=== PATIENT | female | born 2005 | race African-American/Black ===

== ENCOUNTER 2025-10-02 13:48 | Emergency (ER) | payer OTHER, SELFPAY ==
--- NOTE | ~2025-10-02 | XR_ITS ---
EXAMINATION: XR ankle RT min 3V, 10/02/2025 14:00 CDT HISTORY: injury for 1 week COMPARISON: No comparisons available. Findings: No acute fracture or malalignment. No significant degenerative changes. Soft tissues unremarkable. Impression: No acute fracture or malalignment. Reviewed, dictated and finalized at location P. Impression: No acute fracture or malalignment.
[2025-10-02 14:01] VITALS: BP 131/73; PULSE 70; RESP 18; TEMP 36.8; O2SAT 100
--- NOTE | 2025-10-02 14:24 | ED.LOWEXIN ---
HPI - Extremity Injury (Lower) General Chief Complaint: Extremity Injury, Lower Stated Complaint: right ankle injury Time Seen by Provider: 10/02/25 14:15 Source: patient and RN notes reviewed Mode of arrival: ambulatory Limitations: no limitations History of Present Illness HPI Narrative: 20-year-old female Presents Express Care complaining of injury to right ankle 1 week ago. Patient reports 1 week ago she was playing many calls when she stepped down on an uneven surface and rolled her right ankle falling to the ground. Patient denies any other injuries, she denies hitting her head no loss of consciousness, neck pain, back pain. Patient's have been doing ice and took 1 dose of ibuprofen without relief. Patient denies any numbness, tingling.. Patient denies any significant past medical history. Related Data Home Medications ?Medication ?Instructions ?Recorded ?Confirmed ?Last Taken ?Type No Home Medications 10/02/25 10/02/25 Unknown History Allergies Allergy/AdvReac Type Severity Reaction Status Date / Time No Known Allergies Allergy Verified 10/02/25 14:03 Review of Systems Review of Systems: CONSTITUTIONAL: Denies fever, chills, or sweats. EYES: Denies visual changes, redness, or discharge. ENT: Denies rhinorrhea, congestion, sore throat, or otalgia. CARDIOVASCULAR: Denies chest pain, palpitations, or edema. RESPIRATORY: Denies cough or dyspnea. GASTROINTESTINAL: Denies abdominal pain, nausea, vomiting, or diarrhea. GENITOURINARY: Denies dysuria or hematuria. SKIN: Denies rash, wound, or itching. MUSCULOSKELETAL: Denies back pain, joint pain, or myalgia. Positive for right ankle pain NEUROLOGIC: Denies headache, numbness, or weakness. PSYCHIATRIC: Denies anxiety or depression. All other systems reviewed are negative, except as documented in HPI. PMFSH Comments At the time of my signature, I reviewed and agree with the nursing past medical, surgical, social, and family history. There is no relevant family history pertinent to the patient complaint. Exam Narrative: GENERAL: This is a well-nourished, well-developed adult, in no apparent distress. They are non ill-appearing, nontoxic appearing. HEAD: normocephalic, atraumatic. EYES: Sclera clear/white. Vision is grossly intact. Conjunctiva normal. Extraocular movement intact. EARS: External ears normal Hearing grossly intact. NOSE: External nose normal THROAT: Mucous membranes moist NECK: Neck supple CARDIOVASCULAR: Regular rate and rhythm RESPIRATORY: Respiratory rate normal, respiratory effort nonlabored, no respiratory distress NEURO: awake, alert, and oriented to person, place and time. There were no obvious focal neurologic abnormalities. EXTREMITIES: Right ankle: No obvious deformity, injury, swelling, bruising, redness. There is pain through full range of motion. Lateral tenderness to palpation. Capillary refill less than 3 seconds. Right pedal Pulse 2 +palpable. Normal sensation. Neurovascular status intact distal injury. Patient able to wiggle her toes. Negative Lozoya's test. BACK: Nontender without deformity. Course Course Emergency Course: Portions of this record may have been created with voice recognition software Level of Care: Express Care Visit Vital Signs Vital signs: Vital Signs Temperature 98.3 F 10/02/25 14:01 Pulse Rate 70 10/02/25 14:01 Respiratory Rate 18 10/02/25 14:01 Blood Pressure 131/73 10/02/25 14:01 Pulse Oximetry 100 10/02/25 14:01 Oxygen Delivery Room Air 10/02/25 14:01 Temperature 98.3 F 10/02/25 14:01 Pulse Rate 70 10/02/25 14:01 Respiratory Rate 18 10/02/25 14:01 Blood Pressure 131/73 10/02/25 14:01 Pulse Oximetry 100 10/02/25 14:01 Oxygen Delivery Room Air 10/02/25 14:01 Reviewed MDM - Extremity Injury (Lower) MDM Narrative Medical decision making narrative: X-ray right ankle negative for any fractures or acute findings. Likely an ankle sprain. Patient given an Dominic wrap for compression. Discussed supportive therapy, gave referral ortho if she continues to have pain after 1 week. Discussed physical exam findings. Advised supportive measures and signs/symptoms to go to the ER. Pt is appropriate for outpt treatment and f/u. Differential Diagnosis Differential diagnosis: Likely ankle sprain and strain, ankle fracture and other (Foot fracture, contusion) Imaging Data Radiologist's impression: ITS Impressions Ankle X-Ray 10/02/25 14:09 Impression: No acute fracture or malalignment. Critical Care Time Critical Care Time Critical Care Time: No Discharge Plan Discharge Clinical Impression: Injury of right ankle Patient Disposition: Home Condition: Stable Instructions: Antibiotic Form, Ankle Sprain (ED) Additional Instructions: The x-ray right ankle is negative for any fractures or acute findings. Rest and elevate the leg; bear weight as tolerated Apply ice 15-20 minute intervals several times a day Keep it wrapped with DMOINIC or use a soft ankle splint You may take ibuprofen 600 mg to 800 mg every 6-8 hours. Do not exceed more than 800 mg of ibuprofen per dose. Do not exceed more than 3200 mg ibuprofen in a day. You may take up to 1000 mg Tylenol every 6-8 hours. Do not exceed 1000 mg per dose, do exceed more than 4000 mg of Tylenol in a day. Follow up with your primary care provider or orthopedist in 1 week especially if pain is persisting. Patient Language: Marshallese Prescriptions: No Action No Home Medications Follow-up/Referrals: PHYSICIAN,MANAGER SCIENTIFIC [Primary Care Provider, Internal Medicine] Phil Conklin MD [Physician, Orthopedics] - 1 Week Referral Note: if pain is persisting Stand Alone Forms: Work/School Release IP Time of Disposition: 14:23
== END 2025-10-02 14:28 | disposition home or self-care (01) ==
DX: S99.911A Unspecified injury of right ankle, initial encounter (principal); X50.9XXA Other and unspecified overexertion or strenuous movements or postures, initial encounter
CPT/HCPCS: 73610; 99213; G0463